=== PATIENT | female | born 1965 ===

== ENCOUNTER 2017-03-20 11:26 | Day surgery (SDC) | payer SELFPAY ==
[2017-03-20] MEDS ORDERED: Lactated Ringer's 500 ML IV ONE (11:52)
[2017-03-20] MEDS ORDERED: Propofol 10 mg/ml Inj (20 ML) ONE (12:02)
[2017-03-20 12:53] VITALS: BP 107/59; PULSE 77; RESP 15; TEMP 97.4; O2SAT 99
== END 2017-03-20 13:21 | disposition home or self-care (01) ==
LOC: H.ENDO 11:26
PROVIDERS: ATTEND Internal Medicine Gastroenterology
DX: Z12.11 Encounter for screening for malignant neoplasm of colon (principal); E78.5 Hyperlipidemia, unspecified; K64.8 Other hemorrhoids; K30 Functional dyspepsia; K44.9 Diaphragmatic hernia without obstruction or gangrene; K31.9 Disease of stomach and duodenum, unspecified

== ENCOUNTER 2017-06-22 10:47 | Emergency (ER) | payer OTHER, SELFPAY ==
[2017-06-22 10:51] VITALS: RESP 18; O2SAT 100
[2017-06-22] MEDS ORDERED: TDAP Vaccine 0.5 mL Syr IM ONE (11:14)
--- NOTE | 2017-06-22 11:59 | ED PDOC ---
Upper Extremity Pain/Injury Time Seen by Provider: 06/22/17 10:54 Chief Complaint (Nursing): Upper Extremity Problem/Injury Chief Complaint (Provider): Left shoulder injury s/p fall History Per: Patient History/Exam Limitations: no limitations Onset/Duration Of Symptoms: Mins Current Symptoms Are (Timing): Still Present Quality: Squeezing Exacerbating Factor(s): Strenuous Use Of Affected Area Additional Complaint(s): The patient is a 51yo female, past medical history of hypercholesterolemia, presents to the ED for evaluation s/p a mechanical fall prior to arrival. Patient reports she was walking on the sidewalk and did not notice an uneven portion so she tripped and fell, sustaining injury to her face, head and left shoulder. Patient denies any loss of consciousness due to the fall. She currently reports facial pain with abrasion to her nose and upper lip; patient also complaining of a loose tooth, left shoulder pain which is worse with movement. She denies any other injuries, dizziness, chest pain or shortness of breath. Patient currently without any other medical complaints. PCP: Follows up at [facility] Past Medical History Reviewed: Historical Data, Nursing Documentation, Vital Signs Vital Signs: Last Vital Signs Temp 99.2 F 06/22/17 10:50 Pulse 84 06/22/17 10:50 Resp 18 06/22/17 10:50 BP 130/85 06/22/17 10:50 Pulse Ox 100 06/22/17 10:50 - Medical History PMH: Arthritis, Hypercholesterolemia Denies: Chronic Kidney Disease - Surgical History Surgical History: No Surg Hx - Family History Family History: States: No Known Family Hx - Home Medications Home Medications: Ambulatory Orders Medication Instructions Recorded Omeprazole 20 mg PO DAILY 03/20/17 Pravastatin Sodium [Pravachol] 40 mg PO DAILY 03/20/17 Bacitracin OINT 1 applic TP DAILY #1 tube 06/22/17 Ibuprofen [Motrin] 600 mg PO TID #20 tab 06/22/17 - Allergies Allergies/Adverse Reactions: Allergies Allergy/AdvReac Type Severity Reaction Status Date / Time Penicillins Allergy RASH Verified 03/20/17 11:54 Review of Systems ROS Statement: Except As Marked, All Systems Reviewed And Found Negative ENT: Positive for: Nose Pain (abrasion and injury to nose), Mouth Pain ( abrasion to upper lip), Other (loose tooth) Cardiovascular: Negative for: Chest Pain Respiratory: Negative for: Shortness of Breath Musculoskeletal: Positive for: Other (left shoulder pain) Neurological: Negative for: Headache Physical Exam - Reviewed Nursing Documentation Reviewed: Yes Vital Signs Reviewed: Yes - Physical Exam Appears: Positive for: Non-toxic, No Acute Distress Head Exam: Positive for: NORMAL INSPECTION. Negative for: ATRAUMATIC (patient with signs of trauma) Skin: Positive for: Normal Color, Warm Eye Exam: Positive for: Normal appearance, EOMI, PERRL ENT: Positive for: Other (Abrasion noted to nasal bridge and upper lip, mild swelling no laceration noted. No septal hematoma or deformity of nose noted. Tooth no. 8 is ceramic prosthetic and is loose, all other teeth intact. ) Neck: Positive for: Normal, Painless ROM, Supple Cardiovascular/Chest: Positive for: Regular Rate, Rhythm Respiratory: Positive for: Normal Breath Sounds. Negative for: Respiratory Distress Extremity: Negative for: Normal ROM (left shoulder with limited rom due to pain) , Deformity, Swelling Neurologic/Psych: Positive for: Alert, Oriented - ECG O2 Sat by Pulse Oximetry: 100 (RA) Pulse Ox Interpretation: Normal Medical Decision Making Medical Decision Making: Time: 1115 Impression: Facial injury, head injury rule out fracture and intracranial bleed Differential: Shoulder dislocation, fracture Plan: -- CT Head -- CT Maxillofacial -- XR Left shoulder -- TDAP Booster Reassess Time: 1331 CT Head IMPRESSION: Normal CT of the Head. CT Maxillofacial Impression: Unremarkable non contrast enhanced CT of the maxillofacial bones. XR Left shoulder impression as read by provider: Normal findings. Scribe Attestation: Documented by Carmel Ayala acting as a scribe for Rika Lazaro MD. Provider Attestation: All medical record entries made by the Scribe were at my direction and personally dictated by me. I have reviewed the chart and agree that the record accurately reflects my personal performance of the history, physical exam, medical decision making, and the department course for this patient. I have also personally directed, reviewed, and agree with the discharge instructions and disposition. Disposition - Clinical Impression Clinical Impression: Contusion shoulder/arm, Facial injury, Head injury, Abrasion of face, Avulsion of tooth due to trauma Doctor Will See Patient In The: Office Counseled Patient/Family Regarding: Studies Performed, Diagnosis, Need For Followup - Disposition Referrals: [facility] [Outside] Disposition: Routine/Home Disposition Time: 13:30 Condition: GOOD Additional Instructions: Apply ice on affected are for 24hr. Take advil for pain. Follow up with your PCP in 2-3 days. See your dentist within 2 days. Prescriptions: Bacitracin OINT 1 applic TP DAILY #1 tube Ibuprofen [Motrin] 600 mg PO TID #20 tab Instructions: Head Injury (ED), Acute Dental Trauma (ED), Shoulder Sprain (ED) Print Language: INDONESIAN
--- NOTE | 2017-06-22 12:18 | CT ---
PROCEDURE: CT HEAD WITHOUT CONTRAST. HISTORY: head injury COMPARISON: None available. TECHNIQUE: Axial computed tomography images were obtained through the head/brain without intravenous contrast. Radiation dose: Total exam DLP = 1178 mGy-cm. This CT exam was performed using one or more of the following dose reduction techniques: Automated exposure control, adjustment of the mA and/or kV according to patient size, and/or use of iterative reconstruction technique. FINDINGS: HEMORRHAGE: No intracranial hemorrhage. BRAIN: No mass effect or edema. No atrophy or chronic microvascular ischemic changes. VENTRICLES: Unremarkable. No hydrocephalus. CALVARIUM: Unremarkable. PARANASAL SINUSES: Unremarkable as visualized. No significant inflammatory changes. MASTOID AIR CELLS: Unremarkable as visualized. No inflammatory changes. OTHER FINDINGS: None. IMPRESSION: Normal CT of the Head.
--- NOTE | 2017-06-22 12:38 | CT ---
PROCEDURE: CT MAXILLOFACIAL BONES WITHOUT CONTRAST HISTORY: facial injury nose injury COMPARISON: None TECHNIQUE: Contiguous axial CT images of the maxillofacial bones were obtained. Coronal and sagittal reformats were generated. Radiation dose: Total exam DLP = 1168 mGy-cm. This CT exam was performed using one or more of the following dose reduction techniques: Automated exposure control, adjustment of the mA and/or kV according to patient size, and/or use of iterative reconstruction technique. FINDINGS: NASAL BONES: Unremarkable. ORBITS: Unremarkable. PARANASAL SINUSES/ MASTOIDS: Clear. MAXILLA: Unremarkable. MANDIBLE/ TEMPOROMANDIBULAR JOINTS: Unremarkable. SKULL BASE: Unremarkable. TEMPORAL BONES: Middle ears and mastoid grossly unremarkable. OTHER FINDINGS: None. IMPRESSION: Unremarkable non contrast enhanced CT of the maxillofacial bones.
[2017-06-22 14:01] VITALS: BP 131/79; PULSE 85; TEMP 98.2
--- NOTE | 2017-06-22 16:10 | RAD ---
PROCEDURE: Radiographs of the Left Shoulder HISTORY: left shoulder pain injury COMPARISON: No prior. FINDINGS: BONES: Normal. No fracture. JOINTS: Normal. Glenohumeral and acromioclavicular joints preserved. No osteoarthritis. SOFT TISSUES: Normal. OTHER FINDINGS: None. IMPRESSION: Normal radiographs of the left shoulder.
== END 2017-06-22 14:01 | disposition home or self-care (01) ==
LOC: H.ER 10:47
DX: S00.81XA Abrasion of other part of head, initial encounter (principal); S00.83XA Contusion of other part of head, initial encounter; S09.92XA Unspecified injury of nose, initial encounter; S46.912A Strain of unspecified muscle, fascia and tendon at shoulder and upper arm level, left arm, initial encounter; W19.XXXA Unspecified fall, initial encounter; Y92.480 Sidewalk as the place of occurrence of the external cause; E78.00 Pure hypercholesterolemia, unspecified; Z88.0 Allergy status to penicillin

== ENCOUNTER 2017-10-16 07:18 | Emergency (ER) | payer SELFPAY ==
[2017-10-16 07:31] VITALS: BMI 33.0
[2017-10-16 07:33] VITALS: BP 136/76; PULSE 83; RESP 17; TEMP 98.1; O2SAT 98
--- NOTE | 2017-10-16 08:04 | ED PDOC ---
HPI: General Adult Time Seen by Provider: 10/16/17 07:21 Chief Complaint (Nursing): ENT Problem Chief Complaint (Provider): Ear pain History Per: Patient History/Exam Limitations: no limitations Onset/Duration Of Symptoms: Days (x 3) Current Symptoms Are (Timing): Still Present Additional Complaint(s): Chelsea is a 52 year old female who presents to the ED complaining of 3 days of left ear pain. Also reports having cough, cold, & congestion, for 1 month. No sore throat, fever, chills, headache, vision changes, chest pain, or shortness of breath. She feels her hearing is ok, but feels as if it's swollen inside her ear. Patient uses Q-tips and may have injured the ear. PMD: None provided Past Medical History Reviewed: Historical Data, Nursing Documentation, Vital Signs Vital Signs: Last Vital Signs Temp 98.1 F 10/16/17 07:31 Pulse 83 10/16/17 07:31 Resp 17 10/16/17 07:31 BP 136/76 10/16/17 07:31 Pulse Ox 98 10/16/17 08:08 - Medical History PMH: Arthritis, Hypercholesterolemia Denies: Chronic Kidney Disease - Surgical History Surgical History: No Surg Hx - Family History Family History: States: Unknown Family Hx - Social History Current smoker - smoking cessation education provided: No Alcohol: None Drugs: Denies - Home Medications Home Medications: Ambulatory Orders Medication Instructions Recorded Omeprazole 20 mg PO DAILY 03/20/17 Pravastatin Sodium [Pravachol] 40 mg PO DAILY 03/20/17 Bacitracin OINT 1 applic TP DAILY #1 tube 06/22/17 Ibuprofen [Motrin] 600 mg PO TID #20 tab 06/22/17 Clindamycin [Cleocin] 300 mg PO QID 7 Days cap 10/16/17 Ibuprofen [Motrin] 600 mg PO TID 7 Days tab 10/16/17 - Allergies Allergies/Adverse Reactions: Allergies Allergy/AdvReac Type Severity Reaction Status Date / Time Penicillins Allergy RASH Verified 03/20/17 11:54 Review of Systems ROS Statement: Except As Marked, All Systems Reviewed And Found Negative Constitutional: Negative for: Fever, Chills Eyes: Negative for: Vision Change ENT: Positive for: Ear Pain (Left), Nose Congestion. Negative for: Throat Pain Cardiovascular: Negative for: Chest Pain Respiratory: Positive for: Cough. Negative for: Shortness of Breath Gastrointestinal: Negative for: Nausea, Vomiting, Diarrhea Neurological: Negative for: Weakness, Numbness, Headache, Dizziness Physical Exam - Reviewed Nursing Documentation Reviewed: Yes Vital Signs Reviewed: Yes - Physical Exam Appears: Positive for: Non-toxic, No Acute Distress Head Exam: Positive for: ATRAUMATIC, NORMAL INSPECTION, NORMOCEPHALIC Skin: Positive for: Normal Color, Warm, Dry Eye Exam: Positive for: EOMI, Normal appearance, PERRL ENT: Positive for: TM Is/Are (Right TM appears unremarkable. Left TM ruptured, no erythema noted.). Negative for: Other (Tenderness to mastoid area or surrounding the pinna) Neck: Positive for: Normal, Painless ROM, Supple Cardiovascular/Chest: Positive for: Regular Rate, Rhythm. Negative for: Murmur Respiratory: Positive for: Normal Breath Sounds. Negative for: Accessory Muscle Use, Respiratory Distress Gastrointestinal/Abdominal: Positive for: Normal Exam, Soft. Negative for: Tenderness Extremity: Positive for: Normal ROM. Negative for: Pedal Edema, Deformity Neurologic/Psych: Positive for: Alert, Oriented - ECG O2 Sat by Pulse Oximetry: 98 (RA) Pulse Ox Interpretation: Normal Medical Decision Making Medical Decision Making: Time: 7:58 Initial Plan: Patient medically stable for discharge home. Will D/c with Clindamycin and Motrin. Follow up with PMD or ENT. There is agreement to discharge plan. Return if symptoms persist or worsen. Scribe Attestation: Documented by Jen Villela, acting as a scribe for Esteban Pedroza MD Provider Scribe Attestation: All medical record entries made by the Scribe were at my direction and personally dictated by me. I have reviewed the chart and agree that the record accurately reflects my personal performance of the history, physical exam, medical decision making, and the department course for this patient. I have also personally directed, reviewed, and agree with the discharge instructions and disposition. 758: AAOx3. Pain stable. Disposition - Clinical Impression Clinical Impression: Ruptured ear drum - Patient ED Disposition Is Patient to be Admitted: No Counseled Patient/Family Regarding: Diagnosis, Need For Followup, Rx Given - Disposition Referrals: [facility] [place] [Outside] [facility] [Outside] - 10/17/17 Dom Spears MD [Staff Provider] - 10/17/17 Disposition Time: 07:50 Condition: STABLE Additional Instructions: Return if not better in 3 days. Prescriptions: Clindamycin [Cleocin] 300 mg PO QID 7 Days cap Ibuprofen [Motrin] 600 mg PO TID 7 Days tab Instructions: Ruptured Eardrum (ED) Forms: [employer] (Tamazight), [employer] (Ukrainian) Print Language: MACEDONIAN
== END 2017-10-16 08:47 | disposition home or self-care (01) ==
LOC: H.ER 07:18
DX: H72.92 Unspecified perforation of tympanic membrane, left ear (principal); E78.00 Pure hypercholesterolemia, unspecified; Z88.0 Allergy status to penicillin

== ENCOUNTER 2018-06-12 05:48 | Emergency (ER) | payer SELFPAY ==
[2018-06-12 05:48] VITALS: BMI 33.0
[2018-06-12 06:10] VITALS: O2SAT 97
--- NOTE | 2018-06-12 06:47 | ED PDOC ---
HPI: General Adult Time Seen by Provider: 06/12/18 06:13 Chief Complaint (Nursing): Abnormal Skin Integrity Chief Complaint (Provider): Rash History Per: Patient History/Exam Limitations: no limitations Onset/Duration Of Symptoms: Days (x3) Current Symptoms Are (Timing): Still Present Additional Complaint(s): 52 y/o female with a PMHx of HTN presenting for evaluation of allergic reaction x3 days. Patient states she knows she has an allergy to penicillin, but on Friday she was having cold symptoms and took 2 pills of Amoxicillin. She states she afterwards developed a rash to her arms and scalp. Says she took milk yesterday to try to calm her symptoms, but her symptoms were not relieved. She states shes itchy most on the scalp behind her ears, hands, and upper back. PMD: None reported Past Medical History Reviewed: Historical Data, Nursing Documentation, Vital Signs Vital Signs: Last Vital Signs Temp 97.5 F L 06/12/18 06:05 Pulse 82 06/12/18 06:05 Resp 16 06/12/18 06:05 BP 144/94 H 06/12/18 06:05 Pulse Ox 97 06/12/18 06:55 - Medical History PMH: Arthritis, Hypercholesterolemia Denies: Chronic Kidney Disease - Surgical History Surgical History: No Surg Hx - Family History Family History: States: Unknown Family Hx - Home Medications Home Medications: Ambulatory Orders Medication Instructions Recorded Omeprazole 20 mg PO DAILY 03/20/17 Pravastatin Sodium [Pravachol] 40 mg PO DAILY 03/20/17 Bacitracin OINT 1 applic TP DAILY #1 tube 06/22/17 Ibuprofen [Motrin] 600 mg PO TID #20 tab 06/22/17 Clindamycin [Cleocin] 300 mg PO QID 7 Days cap 10/16/17 Ibuprofen [Motrin] 600 mg PO TID 7 Days tab 10/16/17 Benzonatate [Tessalon Perle] 100 mg PO TID #20 capsule 06/12/18 DiphenhydrAMINE [Benadryl] 50 mg PO Q8 #12 cap 06/12/18 - Allergies Allergies/Adverse Reactions: Allergies Allergy/AdvReac Type Severity Reaction Status Date / Time Penicillins Allergy RASH Verified 06/12/18 06:05 Review of Systems ROS Statement: Except As Marked, All Systems Reviewed And Found Negative ENT: Negative for: Throat Swelling Respiratory: Negative for: Shortness of Breath Skin: Positive for: Rash (itchy rash to scalp and arms) Physical Exam - Reviewed Nursing Documentation Reviewed: Yes Vital Signs Reviewed: Yes - Physical Exam Appears: Positive for: Non-toxic, No Acute Distress Head Exam: Positive for: ATRAUMATIC, NORMAL INSPECTION, NORMOCEPHALIC Skin: Positive for: Rash (diffuse minimally scattered urticarial patches blanching) Eye Exam: Positive for: EOMI, Normal appearance, PERRL ENT: Positive for: Normal ENT Inspection Neck: Positive for: Normal, Painless ROM, Supple Cardiovascular/Chest: Positive for: Regular Rate, Rhythm. Negative for: Murmur Respiratory: Positive for: Normal Breath Sounds. Negative for: Respiratory Distress Gastrointestinal/Abdominal: Positive for: Normal Exam, Soft. Negative for: Tenderness Back: Positive for: Normal Inspection. Negative for: L CVA Tenderness, R CVA Tenderness, Vertebral Tenderness Extremity: Positive for: Normal ROM. Negative for: Pedal Edema, Deformity Neurologic/Psych: Positive for: Alert, Oriented. Negative for: Motor/Sensory Deficits - ECG O2 Sat by Pulse Oximetry: 97 (RA) Pulse Ox Interpretation: Normal Medical Decision Making Medical Decision Makin:15 A/P: 52 y/o female with mild allergic reaction to penicillin -No signs of airway compromise -Patient is very well appearing, speaking full sentences -Will give Benadryl and steroid PO, will reeval 07:35 PAtient feeling much better, rash improving, will give benadryl po rx. Patient requesting medicatino for cough, will prescribe tessalon. Advised followup in clinic. ----- Scribe Attestation: Documented by Oneil Spann, acting as a scribe for Nathaniel Liu MD. Provider Scribe Attestation: All medical record entries made by the Scribe were at my direction and personally dictated by me. I have reviewed the chart and agree that the record accurately reflects my personal performance of the history, physical exam, medical decision making, and the department course for this patient. I have also personally directed, reviewed, and agree with the discharge instructions and disposition. Disposition - Clinical Impression Clinical Impression: Allergic reaction - Patient ED Disposition Is Patient to be Admitted: Transfer of Care - Disposition Referrals: [facility] [Outside] Disposition: Routine/Home Disposition Time: 07:00 Condition: IMPROVED Prescriptions: Benzonatate [Tessalon Perle] 100 mg PO TID #20 capsule DiphenhydrAMINE [Benadryl] 50 mg PO Q8 #12 cap Instructions: Drug Allergy Forms: [facility] (Jordanian) Print Language: EGYPTIAN
--- NOTE | 2018-06-12 07:05 | ED PDOC ---
- ECG O2 Sat by Pulse Oximetry: 97 (RA) Medical Decision Making Medical Decision Making: Time: 0700 --Patient is endorsed to provider by Dr. Liu, pending re-evaluation and final disposition. Scribe Attestation: Documented by Cheryl Gtz, acting as a scribe for Brian Rogers III, DO. Provider Scribe Attestation: All medical record entries made by the Scribe were at my direction and personally dictated by me. I have reviewed the chart and agree that the record accurately reflects my personal performance of the history, physical exam, medical decision making, and the department course for this patient. I have also personally directed, reviewed, and agree with the discharge instructions and disposition. Disposition - Disposition Forms: [employer] (Icelandic)
[2018-06-12 08:00] VITALS: BP 146/76; PULSE 74; RESP 15; TEMP 98.3
== END 2018-06-12 08:18 | disposition home or self-care (01) ==
LOC: H.ER 05:48
DX: T78.49XA Other allergy, initial encounter (principal); X58.XXXA Exposure to other specified factors, initial encounter